=== PATIENT | male | born 1995 | race Caucasian/White ===

== ENCOUNTER 2018-01-14 21:10 | Emergency (ER) | payer OTHER ==
[2018-01-14] MEDS ORDERED: ONDANSETRON 4 MG/2 ML VIAL IVPUSH ONE ×2 (21:45→22:16)
--- NOTE | 2018-01-14 21:45 | PDOC ---
Rapid Medical Evaluation Chief Complaint: Pain, Acute Time Seen by Provider: 01/14/18 21:29 Medical Evaluation: 01/14/18 21:38 CC: c/o RUQ pain with diarrhea x 1 week. denies fever/ chills. pain worse after eating took peptobismol and alkaseltzer with no relief in pain. PE: patient alert ox3. A: abdominal pain P: Patient alert ox3. RUQ tenderness. cbc cmp lipase abdominal US
[2018-01-14 21:56] VITALS: BMI 26.6
[2018-01-14] MEDS ORDERED: ACETAMINOPHEN 1000 MG/100 ML VIAL (NON FORMULARY) IVPB ONE (22:16)
[2018-01-14] MEDS ORDERED: SODIUM CHLORIDE 0.9% 1000 ML INFUS.BAG IV ONE (22:16)
[2018-01-14] MEDS ORDERED: FAMOTIDINE 20 MG/50 ML IVPB 20 MG/50 ML MG IVPB ONE ×2 (22:16→22:32)
[2018-01-14 22:20] LABS: BASO % 0.9 % (0-2.0); EOS % 3.4 % (0-4.5); HEMATOCRIT 43.5 % (35.4-49); HEMOGLOBIN 14.1 GM/dL (11.7-16.9); LYMPH % 25.3 % (8-40); MCH 28.8 pg (25.7-33.7); MCHC 32.4 g/dl (32.0-35.9); MEAN CELL VOLUME 89.1 fl (80-96); MONO % 5.3 % (3.8-10.2); NEUT % 65.1 % (42.8-82.8); PLATELET COUNT 209 K/MM3 (134-434); RBC 4.88 M/mm3 (4.00-5.60); RDW 13.7 % (11.9-15.9); WHITE BLOOD COUNT 9.5 K/mm3 (4.0-10.0)
[2018-01-14] MEDS ORDERED: ONDANSETRON 4 MG/2 ML VIAL ONE (22:32)
[2018-01-14] MEDS ORDERED: ACETAMINOPHEN INJECTION 100 ML IVPB ONE (22:32)
--- NOTE | 2018-01-14 22:37 | PDOC ---
History of Present Illness - General History Source: Patient Exam Limitations: No Limitations - History of Present Illness Initial Comments: 01/14/18 22:52 The patient is a 22 year old male with no significant past medical history presents to the emergency department with right upper quadrant pain w/ nausea and diarrhea. The patient states intermittent pain to the RUQ that radiates to the upper back, no relief with pepto or alkaseltzer. The patient denies any episodes of vomiting but states he has tried to vomit with nothing coming up. The patient states mild dysuria while urinating. The patient states currently he feels nauseous. Denies any burning sensation to the chest. Denies fever, chills cough or chest pain. Denies any hematuria, frequency or urgency to urinate. Allergies: NKDA Social history: None reported Surgical history: None reported PCP: Dr. Aaron Savage MD. <Ximena Henry - Last Filed: 01/14/18 22:52> <Tita Mireles - Last Filed: 01/15/18 01:50> - General Chief Complaint: Pain Stated Complaint: STOMACH PAIN Time Seen by Provider: 01/14/18 21:29 Past History <Ximena Henry - Last Filed: 01/14/18 22:52> - Suicide/Smoking/Psychosocial Hx Smoking History: Never smoked Have you smoked in the past 12 months: No Information on smoking cessation initiated: No Hx Alcohol Use: No Drug/Substance Use Hx: No <Tita Mireles - Last Filed: 01/15/18 01:50> - Past Medical History Allergies/Adverse Reactions: Allergies Allergy/AdvReac Type Severity Reaction Status Date / Time No Known Allergies Allergy Verified 01/14/18 22:17 Home Medications: Ambulatory Orders Ranitidine [Zantac -] 150 mg PO DAILY #14 tablet 01/15/18 Review of Systems - Review of Systems Able to Perform ROS?: Yes Comments:: 01/14/18 22:50 GENERAL/CONSTITUTIONAL: No fever or chills. No weakness. HEAD, EYES, EARS, NOSE AND THROAT: No change in vision. No ear pain or discharge. No sore throat. CARDIOVASCULAR: No chest pain or shortness of breath. RESPIRATORY: No cough, wheezing, or hemoptysis. GASTROINTESTINAL: (+) Nausea and diarrhea. No vomiting or constipation. GENITOURINARY: (+) Mild dysuria. No frequency, or change in urination. MUSCULOSKELETAL: No joint or muscle swelling or pain. No neck or back pain. SKIN: No rash NEUROLOGIC: No headache, vertigo, loss of consciousness, or change in strength/ sensation. ENDOCRINE: No increased thirst. No abnormal weight change. HEMATOLOGIC/LYMPHATIC: No anemia, easy bleeding, or history of blood clots. ALLERGIC/IMMUNOLOGIC: No hives or skin allergy. <Ximena Henry - Last Filed: 01/14/18 22:52> *Physical Exam - Vital Signs Last Vital Signs Temp Pulse Resp BP Pulse Ox 97.9 F 81 16 99/60 100 01/14/18 21:11 01/14/18 21:11 01/14/18 21:11 01/14/18 21:11 01/14/18 21:11 - Physical Exam Comments: 01/14/18 22:47 GENERAL: Awake, alert, and fully oriented, in no acute distress HEAD: No signs of trauma EYES: PERRLA, EOMI, sclera anicteric, conjunctiva clear ENT: Auricles normal inspection, hearing grossly normal, nares patent, oropharynx clear without exudates. Moist mucosa NECK: Normal ROM, supple, no lymphadenopathy, JVD, or masses LUNGS: Breath sounds equal, clear to auscultation bilaterally. No wheezes, and no crackles HEART: Regular rate and rhythm, normal S1 and S2, no murmurs, rubs or gallops ABDOMEN: (+) Positive murphys sign with right upper quadrant pain. Soft, nontender, normoactive bowel sounds. No guarding, no rebound. No masses EXTREMITIES: Normal range of motion, no edema. No clubbing or cyanosis. No cords, erythema, or tenderness NEUROLOGICAL: Cranial nerves II through XII grossly intact. Normal speech, normal gait SKIN: Warm, Dry, normal turgor, no rashes or lesions noted. <Ximena Henry - Last Filed: 01/14/18 22:52> - Vital Signs Last Vital Signs Temp Pulse Resp BP Pulse Ox 97.9 F 81 16 99/60 100 01/14/18 21:11 01/14/18 21:11 01/14/18 21:11 01/14/18 21:11 01/14/18 21:11 <Tita Mireles - Last Filed: 01/15/18 01:50> ED Treatment Course - LABORATORY CBC & Chemistry Diagram: 01/14/18 22:03 01/14/18 22:03 - ADDITIONAL ORDERS Additional order review: 01/14/18 22:03 RBC 4.88 MCV 89.1 MCHC 32.4 RDW 13.7 MPV 9.0 Neutrophils % 65.1 Lymphocytes % 25.3 Monocytes % 5.3 Eosinophils % 3.4 Basophils % 0.9 - Medications Given in the ED: ED Medications Discontinued Medications Generic Name Dose Route Start Last Admin Trade Name Freq PRN Reason Stop Dose Admin Acetaminophen 1,000 mg 01/14/18 22:16 01/14/18 22:32 Ofirmev Injection - IVPB 01/14/18 22:17 1,000 mg ONCE ONE Administration Famotidine/Sodium Chloride 20 mg in 50 mls @ 100 mls/hr 01/14/18 22:16 22:33 Pepcid 20 Mg Premixed Ivpb - IVPB 01/14/18 22:45 100 mls/hr ONCE ONE Administration Ondansetron HCl 4 mg 01/14/18 21:45 01/14/18 22:32 Zofran Injection IVPUSH 01/14/18 21:46 4 mg ONCE ONE Administration Sodium Chloride 1,000 ml 01/14/18 22:16 01/14/18 22:31 Normal Saline - IV 01/14/18 22:17 1,000 ml ONCE ONE Administration <Ximena Henry - Last Filed: 01/14/18 22:52> - LABORATORY CBC & Chemistry Diagram: 01/14/18 22:03 01/14/18 22:03 - ADDITIONAL ORDERS Additional order review: 01/14/18 22:03 RBC 4.88 MCV 89.1 MCHC 32.4 RDW 13.7 MPV 9.0 Neutrophils % 65.1 Lymphocytes % 25.3 Monocytes % 5.3 Eosinophils % 3.4 Basophils % 0.9 - Medications Given in the ED: ED Medications Discontinued Medications Generic Name Dose Route Start Last Admin Trade Name Freq PRN Reason Stop Dose Admin Acetaminophen 1,000 mg 01/14/18 22:16 01/14/18 22:32 Ofirmev Injection - IVPB 01/14/18 22:17 1,000 mg ONCE ONE Administration Ondansetron HCl 4 mg 01/14/18 21:45 01/14/18 22:32 Zofran Injection IVPUSH 01/14/18 21:46 4 mg ONCE ONE Administration Sodium Chloride 1,000 ml 01/14/18 22:16 01/14/18 22:31 Normal Saline - IV 01/14/18 22:17 1,000 ml ONCE ONE Administration <Tita Mireles - Last Filed: 01/15/18 01:50> Medical Decision Making - Medical Decision Making 01/14/18 22:35 a/p: 22yo male with RUQ abd pain assoc with nausea and diarrhea -concern for poss rita vs appy -will start with RUQ u/s and labs -will medicate and reassess -less concern for appy given repeat episodes of RUQ pain with eating assoc with n/d -did drink etoh tonight -will send labs, lipase, RUQ u/s -discussed plan with the patient who agrees with the plan 01/15/18 00:38 re-eval: now c/o only RLQ RUQ u/s without acute findings however, still concern for appy - will obtain ct abd/pelvis labs reviewed without acute findings 01/15/18 01:31 ct does not show acute appy ua negative pt states he feels better will give meds for poss gastritis for epigastric and RUQ pain recommend GI follow up answered all questions stable for d/c to home <Tita Mireles - Last Filed: 01/15/18 01:50> *DC/Admit/Observation/Transfer <Ximena Henry - Last Filed: 01/14/18 22:52> - Discharge Dispostion Decision to Admit order: No - Attestations Physician Attestion: 01/15/18 01:36 I, Dr. Tita Mireles, DO, attest that this document has been prepared under my direction and personally reviewed by me in its entirety. I further attest, that it accurately reflects all work, treatment, procedures and medical decision -making performed by me. <Tita Mireles - Last Filed: 01/15/18 01:50> Diagnosis at time of Disposition: Abdominal pain - Discharge Dispostion Disposition: HOME Condition at time of disposition: Stable - Prescriptions Prescriptions: Ranitidine [Zantac -] 150 mg PO DAILY #14 tablet - Referrals Referrals: Aaron Savage MD [Primary Care Provider] - Candelario Telles DO [Staff Physician] - - Patient Instructions Printed Discharge Instructions: DI for Abdominal Pain-Adult Additional Instructions: Please take all meds as prescribed. 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 Please return to the ED with any further concerns or complaints. Please stick to the BRAT diet (bananas, rice, apple sauce, and toast) and drink clear liquids for the next 24-48 hours. - Post Discharge Activity Forms/Work/School Notes: Back to Work
[2018-01-14 22:59] LABS: URINE APPEARANCE CLEAR; URINE BILIRUBIN NEGATIVE (<2.0 mg/dL); URINE COLOR YELLOW; URINE GLUCOSE (UA) NEGATIVE (NEGATIVE); URINE KETONE NEGATIVE (NEGATIVE); URINE LEUK ESTERASE NEGATIVE (NEGATIVE); URINE NITRITE NEGATIVE (NEGATIVE); URINE PROTEIN NEGATIVE (NEGATIVE)
[2018-01-15 00:26] LABS: BLOOD UREA NITROGEN 15 mg/dl (7-18); CREATININE 0.8 mg/dl (0.6-1.3); GLUCOSE,RANDOM 84 mg/dl (74-106)
[2018-01-15 00:27] LABS: ALBUMIN 4.2 g/dl (3.5-5.0); ALK PHOS 69 U/L (32-92); ANION GAP 6 (8-16); BILIRUBIN,TOTAL 0.3 mg/dl (0.2-1.0); CALCIUM 9.4 mg/dl (8.4-10.2); CHLORIDE 103 mmol/L (98-107); CO2 28 mmol/L (22-28); POTASSIUM 3.8 mmol/L (3.5-5.1); SGOT/AST 21 U/L (10-42); SGPT/ALT 20 U/L (10-40); SODIUM 137 mmol/L (136-145); TOT PROT 6.9 g/dl (6.4-8.3)
[2018-01-15 01:46] VITALS: BP 95/52; PULSE 56; TEMP 97.4
[2018-01-15 12:42] LABS: LIPASE 103 U/L (73-393)
== END 2018-01-15 01:52 | disposition home or self-care (01) ==
LOC: JER 21:10
PROC: 3E033GC Introduction of Other Therapeutic Substance into Peripheral Vein, Percutaneous Approach (ICD-10-PCS; principal; 2018-01-14)
PROC: 3E033NZ Introduction of Analgesics, Hypnotics, Sedatives into Peripheral Vein, Percutaneous Approach (ICD-10-PCS; 2018-01-14)
PROC: 3E0337Z Introduction of Electrolytic and Water Balance Substance into Peripheral Vein, Percutaneous Approach (ICD-10-PCS; 2018-01-14)
DX: R10.11 Right upper quadrant pain (principal)
CPT/HCPCS: 36415; 74177-TC; 76705-TC; 80053; 81003; 82553; 83690; 85025; 99282-25; J0131; J7030

== ENCOUNTER 2019-01-08 07:47 | Emergency (ER) | payer OTHER ==
[2019-01-08 07:56] VITALS: BMI 26.6
[2019-01-08] MEDS ORDERED: ONDANSETRON 4 MG/2 ML VIAL IVPUSH ONE (08:31)
[2019-01-08] MEDS ORDERED: KETOROLAC TROMETHAMINE 30 MG/1 ML VIAL IVPUSH ONE (08:31)
[2019-01-08] MEDS ORDERED: SODIUM CHLORIDE 1,000 ML IV STA (08:31)
[2019-01-08] MEDS ORDERED: KETOROLAC TROMETHAMINE 30 MG/1 ML VIAL ONE (09:19)
[2019-01-08] MEDS ORDERED: ONDANSETRON 4 MG/2 ML VIAL ONE (09:20)
[2019-01-08 09:33] LABS: BASO % 0.7 % (0-2.0); EOS % 3.3 % (0-4.5); HEMATOCRIT 45.3 % (35.4-49); HEMOGLOBIN 14.7 GM/dL (11.7-16.9); LYMPH % 32.1 % (8-40); MCH 28.9 pg (25.7-33.7); MCHC 32.4 g/dl (32.0-35.9); MEAN CELL VOLUME 89.2 fl (80-96); MEAN PLT VOLUME 8.9 fl (7.5-11.1); MONO % 4.6 % (3.8-10.2); NEUT % 59.3 % (42.8-82.8); PLATELET COUNT 212 K/MM3 (134-434); RBC 5.08 M/mm3 (4.00-5.60); RDW 13.3 % (11.9-15.9); WHITE BLOOD COUNT 6.1 K/mm3 (4.0-10.0)
[2019-01-08 09:35] LABS: PH,URINE 6.5 (5.0-8.0); URINE APPEARANCE CLEAR; URINE BILIRUBIN NEGATIVE (NEGATIVE); URINE COLOR YELLOW; URINE GLUCOSE (UA) NEGATIVE (NEGATIVE); URINE KETONE NEGATIVE (NEGATIVE); URINE LEUK ESTERASE NEGATIVE (NEGATIVE); URINE NITRITE NEGATIVE (NEGATIVE); URINE PROTEIN NEGATIVE (NEGATIVE); URINE UROBILINOGEN 0.2 mg/dL (0.2-1.0)
[2019-01-08 10:01] LABS: BILIRUBIN,TOTAL 0.3 mg/dL (0.2-1); CALCIUM 9.4 mg/dL (8.5-10.1); CREATININE 0.8 mg/dL (0.55-1.3); MAGNESIUM 1.9 mg/dL (1.8-2.4); POTASSIUM 4.2 mmol/L (3.5-5.1); TOT PROT 6.7 g/dl (6.4-8.2)
--- NOTE | 2019-01-08 10:20 | PDOC ---
History of Present Illness - General Chief Complaint: Pain Stated Complaint: ABD PAIN Time Seen by Provider: 01/08/19 08:30 History Source: Patient Exam Limitations: No Limitations - History of Present Illness Travel History: No Initial Comments: 01/08/19 09:06 23-year-old male with history of gastritis presents to ED with abdominal pain associated with diarrhea for the past month intermittently which she describes as watery diarrhea mixed with periods of constipation and had one episode of bloody stool last week. Patient denies hemorrhoids, difficulty urinating but states did feel warm yesterday and decided come to the ER. Patient states was placed on reflux medication by Dr. Holly a few weeks ago and has a follow-up appointment in 1 week patient denies daily alcohol use or smoking history. Patient states normally does not eat spicy greasy food eating mainly at home. Timing/Duration: reports: intermittent Quality: reports: mild, cramping Abdominal Pain Onset Location: reports: RLQ, LLQ, periumbilical Pain Radiation: reports: no radiation Activities at Onset: reports: none Aggravating Factors: improves with: None Alleviating Factors: improves with: None Past History - Past Medical History Allergies/Adverse Reactions: Allergies Allergy/AdvReac Type Severity Reaction Status Date / Time No Known Allergies Allergy Verified 01/08/19 07:51 Home Medications: Ambulatory Orders Ranitidine [Zantac -] 150 mg PO DAILY #14 tablet 01/15/18 CVA: No COPD: No CHF: No GI Disorders: Yes (gastritis) - Immunization History Immunization Up to Date: Yes - Suicide/Smoking/Psychosocial Hx Smoking History: Never smoked Have you smoked in the past 12 months: No Information on smoking cessation initiated: No Hx Alcohol Use: No Drug/Substance Use Hx: Yes (MARIJUANA) Patient Lives Alone: No Lives with/in: parents Abd/GI Specific PMHX - Complaint Specific PMHX GERD: Yes Review of Systems - Review of Systems Able to Perform ROS?: Yes Constitutional: Yes: Fever, Weakness (mild) Respiratory: No: Symptoms reported Cardiac (ROS): No: Symptoms Reported ABD/GI: Yes: Constipated, Diarrhea, Abdominal cramping. No: Poor Appetite, Poor Fluid Intake : No: Symptoms Reported Musculoskeletal: No: Symptoms Reported Integumentary: No: Symptoms Reported Neurological: No: Symptoms reported Endocrine: No: Symptoms Reported Hematologic/Lymphatic: No: Symptoms Reported *Physical Exam - Vital Signs Last Vital Signs Temp Pulse Resp BP Pulse Ox 97.8 F 57 L 17 104/63 99 01/08/19 08:48 01/08/19 08:48 01/08/19 07:52 01/08/19 08:48 01/08/19 08:48 - Physical Exam General Appearance: Yes: Nourished, Appropriately Dressed. No: Apparent Distress HEENT: negative: Pale Conjunctivae Neck: positive: Supple Respiratory/Chest: positive: Lungs Clear, Normal Breath Sounds. negative: Respiratory Distress, Accessory Muscle Use Cardiovascular: positive: Regular Rhythm, Regular Rate. negative: Murmur Gastrointestinal/Abdominal: positive: Soft, Tenderness (left lower quadrant) Musculoskeletal: negative: CVA Tenderness Extremity: positive: Normal Inspection Integumentary: positive: Normal Color, Warm, Moist Neurologic: positive: Motor Strength 5/5 (ambulatory) ED Treatment Course - LABORATORY CBC & Chemistry Diagram: 01/08/19 09:14 01/08/19 09:14 - ADDITIONAL ORDERS Additional order review: Laboratory Results 01/08/19 09:14 Urine Color Yellow Urine Appearance Clear Urine pH 6.5 Ur Specific [place] 1.018 Urine Protein Negative Urine Glucose (UA) Negative Urine Ketones Negative Urine Blood Negative Urine Nitrite Negative Urine Bilirubin Negative Urine Urobilinogen 0.2 Ur Leukocyte Esterase Negative 01/08/19 09:14 RBC 5.08 MCV 89.2 MCHC 32.4 RDW 13.3 MPV 8.9 Neutrophils % 59.3 Lymphocytes % 32.1 D Monocytes % 4.6 Eosinophils % 3.3 Basophils % 0.7 - Medications Given in the ED: ED Medications Discontinued Medications Generic Name Dose Route Start Last Admin Trade Name Freq PRN Reason Stop Dose Admin Sodium Chloride 1,000 mls @ 1,000 mls/hr 01/08/19 08:31 01/08/19 09:27 Normal Saline - IV 01/08/19 09:30 1,000 mls/hr ASDIR STA Administration Ketorolac Tromethamine 30 mg 01/08/19 08:31 01/08/19 09:27 Toradol Injection - IVPUSH 01/08/19 08:32 30 mg ONCE ONE Administration Ondansetron HCl 4 mg 01/08/19 08:31 01/08/19 09:27 Zofran Injection IVPUSH 01/08/19 08:32 4 mg ONCE ONE Administration Medical Decision Making - Medical Decision Making 01/08/19 10:04 CC: Patient with episodic diarrhea and constipation for the past month now associated 1 episode of bloody stool earlier this week accompanied with subjective fever. Patient under the care of Dr. Holly for gastritis/GERD Exam: Patient with left lower quadrant tenderness otherwise vital signs stable and appears comfortable while at rest. Plan. Labs, urine, fluids and Toradol ordered 01/08/19 11:27 Laboratory Tests 01/08/19 01/08/19 01/08/19 09:14 09:14 09:14 WBC 6.1 Hgb 14.7 Hct 45.3 Absolute Neuts (auto) 3.6 Sodium 142 Potassium 4.2 Chloride 109 H Carbon Dioxide 28 Anion Gap 6 L BUN 11 Creatinine 0.8 Random Glucose 86 Calcium 9.4 Magnesium 1.9 AST 11 L ALT 18 Lipase 97 Urine Ketones Negative Urine Blood Negative Urine Nitrite Negative Ur Leukocyte Esterase Negative Influenza A (Rapid) Influenza B (Rapid) 01/08/19 09:20 WBC Hgb Hct Absolute Neuts (auto) Sodium Potassium Chloride Carbon Dioxide Anion Gap BUN Creatinine Random Glucose Calcium Magnesium AST ALT Lipase Urine Ketones Urine Blood Urine Nitrite Ur Leukocyte Esterase Influenza A (Rapid) Negative Influenza B (Rapid) Negative Patient states feeling better and able to tolerate ice chips and saltines *DC/Admit/Observation/Transfer Diagnosis at time of Disposition: Abdominal pain - Discharge Dispostion Disposition: HOME Condition at time of disposition: Improved - Referrals Referrals: Aaron Savage MD [Primary Care Provider] - - Patient Instructions Printed Discharge Instructions: DI for Abdominal Pain-Adult Additional Instructions: Please eat bland food for the next 48 hours and then advance as tolerated. Drink plenty of fluids and take Zofran as needed for nausea - Post Discharge Activity
[2019-01-08 11:41] VITALS: BP 115/71; PULSE 68; TEMP 97.6
== END 2019-01-08 11:41 | disposition home or self-care (01) ==
LOC: JER 07:47
PROC: 3E0333Z Introduction of Anti-inflammatory into Peripheral Vein, Percutaneous Approach (ICD-10-PCS; principal; 2019-01-08)
DX: R10.9 Unspecified abdominal pain (principal)
CPT/HCPCS: 36415; 80053; 81003; 83690; 83735; 85025; 87086; 87804; 96374; 96375; 99282-25; J7030

== ENCOUNTER 2020-11-23 23:10 | Emergency (ER) | payer OTHER ==
[2020-11-23 23:21] VITALS: BP 116/68; PULSE 79; TEMP 98.5; BMI 26.6
[2020-11-23] MEDS ORDERED: ACETAMINOPHEN 325 MG TABLET (FP) PO ONE (23:51)
[2020-11-23] MEDS ORDERED: ACETAMINOPHEN 325 MG TABLET (FP) ONE (23:54)
== END 2020-11-24 01:47 | disposition home or self-care (01) ==
LOC: JER 23:10
DX: S93.402A Sprain of unspecified ligament of left ankle, initial encounter (principal)
CPT/HCPCS: 73630-TC-LT; 99284-25

== ENCOUNTER 2021-05-18 21:48 | Emergency (ER) | payer OTHER ==
[2021-05-18 21:54] VITALS: BP 118/78; PULSE 75; TEMP 98; BMI 24.3
[2021-05-18] MEDS ORDERED: IBUPROFEN 400 MG TABLET (FP) PO ONE ×2 (22:31→22:37)
== END 2021-05-18 22:55 | disposition home or self-care (01) ==
LOC: JERFT 21:48
DX: S20.212A Contusion of left front wall of thorax, initial encounter (principal); M25.512 Pain in left shoulder; W20.8XXA Other cause of strike by thrown, projected or falling object, initial encounter
CPT/HCPCS: 71045-TC-FY; 71101-TC-LT-FY; 73030-TC-LT-FY; 99285-25

== ENCOUNTER 2022-05-02 21:34 | Emergency (ER) | payer OTHER ==
[2022-05-02 21:47] VITALS: BP 130/83; PULSE 117; RESP 18; TEMP 98.1; BMI 26.4
[2022-05-02] MEDS ORDERED: ONDANSETRON 4 MG/2 ML VIAL IVPUSH ONE (22:41)
[2022-05-02] MEDS ORDERED: SODIUM CHLORIDE 1,000 ML IV STA (22:44)
[2022-05-02] MEDS ORDERED: FAMOTIDINE 20 MG/50 ML IVPB 20 MG/50 ML MG IVPB ONE (23:06)
[2022-05-02] MEDS ORDERED: MAG HYDROX/AL HYDROX/SIMETH -MYLANTA- ORAL SUSPENSION PO ONE (23:06)
[2022-05-02] MEDS ORDERED: ONDANSETRON 4 MG/2 ML VIAL ONE (23:08)
[2022-05-02] MEDS ORDERED: FAMOTIDINE 10 MG/ML VIAL IVPB ONE (23:08)
[2022-05-02] MEDS ORDERED: MAG HYDROX/AL HYDROX/SIMETH 30 ML UNIT-DOSE CUP ONE (23:08)
[2022-05-02] MEDS ORDERED: HALOPERIDOL LACTATE 5 MG/ML IV ONE (23:18)
[2022-05-02 23:40] LABS: BASO % 0.4 % (0-2.0); EOS % 0.2 % (0-4.5); HEMATOCRIT 44.1 % (35.4-49); HEMOGLOBIN 14.9 GM/dL (11.7-16.9); LYMPH % 11.9 % (8-40); MCH 30.2 pg (25.7-33.7); MCHC 33.9 g/dl (32.0-35.9); MEAN PLT VOLUME 8.8 fl (7.5-11.1); MONO % 5.2 % (3.8-10.2); NEUT % 82.3 % (42.8-82.8); PLATELET COUNT 215 10^3/uL (134-434); RBC 4.95 M/mm3 (4.00-5.60); RDW 13.6 % (11.9-15.9); WHITE BLOOD COUNT 10.1 K/mm3 (4.0-10.0)
[2022-05-03 00:01] LABS: CALCIUM 9.6 mg/dL (8.5-10.1)
[2022-05-03 00:02] LABS: ALBUMIN 4.2 g/dl (3.4-5.0); BLOOD UREA NITROGEN 13.1 mg/dL (7-18)
[2022-05-03 00:07] LABS: BILIRUBIN,TOTAL 0.6 mg/dL (0.2-1); TOT PROT 7.5 g/dl (6.4-8.2)
[2022-05-03] MEDS ORDERED: HALOPERIDOL LACTATE 5 MG/ML ONE (00:14)
[2022-05-03 00:58] LABS: CALCIUM 8.8 mg/dL (8.5-10.1)
[2022-05-03 00:59] LABS: BLOOD UREA NITROGEN 12.1 mg/dL (7-18)
[2022-05-03 01:02] LABS: CREATININE 0.9 mg/dL (0.55-1.3)
== END 2022-05-03 01:21 | disposition home or self-care (01) ==
LOC: JER 21:34
PROC: 3E033GC Introduction of Other Therapeutic Substance into Peripheral Vein, Percutaneous Approach (ICD-10-PCS; principal; 2022-05-02)
PROC: 3E033GC Introduction of Other Therapeutic Substance into Peripheral Vein, Percutaneous Approach (ICD-10-PCS; 2022-05-02)
PROC: 3E033GC Introduction of Other Therapeutic Substance into Peripheral Vein, Percutaneous Approach (ICD-10-PCS; 2022-05-02)
DX: F12.10 Cannabis abuse, uncomplicated (principal); R10.13 Epigastric pain
CPT/HCPCS: 36415; 71046-TC-FY; 80048; 80053; 83690; 83735; 84484; 85025; 93005; 93010; 99285-25

== ENCOUNTER 2022-05-14 19:45 | Emergency (ER) | payer OTHER ==
[2022-05-14 20:18] VITALS: BP 107/67; PULSE 98; RESP 18; TEMP 98; BMI 25.8
[2022-05-14] MEDS ORDERED: KETOROLAC TROMETHAMINE 30 MG/1 ML VIAL IM ONE (21:09)
[2022-05-14] MEDS ORDERED: METHOCARBAMOL 500 MG TABLET PO ONE (21:09)
[2022-05-14] MEDS ORDERED: METHOCARBAMOL 500 MG TABLET ONE (21:18)
[2022-05-14] MEDS ORDERED: KETOROLAC TROMETHAMINE 30 MG/1 ML VIAL ONE (21:18)
== END 2022-05-14 21:56 | disposition home or self-care (01) ==
LOC: JERFT 19:45
PROC: 3E0233Z Introduction of Anti-inflammatory into Muscle, Percutaneous Approach (ICD-10-PCS; principal; 2022-05-14)
DX: M25.512 Pain in left shoulder (principal); R07.9 Chest pain, unspecified; V49.40XA Driver injured in collision with unspecified motor vehicles in traffic accident, initial encounter
CPT/HCPCS: 71046-TC-FY; 73030-TC-LT-FY; 93005; 93010; 99285-25

== ENCOUNTER 2022-05-21 14:44 | Emergency (ER) | payer OTHER ==
[2022-05-21 15:21] VITALS: BP 142/80; PULSE 75; RESP 18; TEMP 97.8; BMI 26.4
[2022-05-21] MEDS ORDERED: MAG HYDROX/AL HYDROX/SIMETH 30 ML UNIT-DOSE CUP PO ONE (16:58)
[2022-05-21] MEDS ORDERED: ACETAMINOPHEN 1000 MG/100 ML BAG IVPB ONE (16:58)
[2022-05-21] MEDS ORDERED: FAMOTIDINE 20 MG/50 ML IVPB 20 MG/50 ML MG IVPB ONE ×2 (16:58→17:23)
[2022-05-21] MEDS ORDERED: MAG HYDROX/AL HYDROX/SIMETH 30 ML UNIT-DOSE CUP ONE (17:23)
[2022-05-21] MEDS ORDERED: ACETAMINOPHEN INJECTION 100 ML IVPB ONE (17:23)
[2022-05-21 18:41] LABS: BASO % 0.7 % (0-2.0); EOS % 2.1 % (0-4.5); HEMATOCRIT 47.7 % (35.4-49); LYMPH % 33.2 % (8-40); MCH 30.3 pg (25.7-33.7); MCHC 33.6 g/dl (32.0-35.9); MEAN PLT VOLUME 8.6 fl (7.5-11.1); MONO % 5.9 % (3.8-10.2); NEUT % 58.1 % (42.8-82.8); PLATELET COUNT 272 10^3/uL (134-434); RDW 13.7 % (11.9-15.9); WHITE BLOOD COUNT 8.1 K/mm3 (4.0-10.0)
[2022-05-21 19:11] LABS: ALBUMIN 4.3 g/dl (3.4-5.0); BLOOD UREA NITROGEN 12.6 mg/dL (7-18); CALCIUM 9.6 mg/dL (8.5-10.1)
[2022-05-21 19:14] LABS: CREATININE 0.8 mg/dL (0.55-1.3)
[2022-05-21 19:15] LABS: BILIRUBIN,TOTAL 0.4 mg/dL (0.2-1)
[2022-05-21 19:17] LABS: TOT PROT 7.6 g/dl (6.4-8.2)
== END 2022-05-21 22:17 | disposition home or self-care (01) ==
LOC: JER 14:44
PROC: 3E0333Z Introduction of Anti-inflammatory into Peripheral Vein, Percutaneous Approach (ICD-10-PCS; principal; 2022-05-21)
PROC: 3E033GC Introduction of Other Therapeutic Substance into Peripheral Vein, Percutaneous Approach (ICD-10-PCS; 2022-05-21)
DX: K62.89 Other specified diseases of anus and rectum (principal); R19.5 Other fecal abnormalities; R10.84 Generalized abdominal pain; R11.2 Nausea with vomiting, unspecified
CPT/HCPCS: 36415; 74177-TC; 80053; 82272; 83605; 83690; 85025; 87086; 99285-25

== ENCOUNTER 2022-07-04 20:07 | Emergency (ER) | payer BC, OTHER ==
[2022-07-04 20:34] VITALS: BP 133/70; PULSE 100; RESP 18; TEMP 98.1; BMI 25.8
[2022-07-04] MEDS ORDERED: ACETAMINOPHEN 1000 MG/100 ML BAG IVPB ONE (22:49)
[2022-07-04] MEDS ORDERED: METOCLOPRAMIDE HCL INJECTION 10 MG/2 ML VIAL IVPB ONE (22:49)
[2022-07-04] MEDS ORDERED: MAG HYDROX/AL HYDROX/SIMETH 30 ML UNIT-DOSE CUP PO ONE (22:49)
[2022-07-04] MEDS ORDERED: LACTATED RINGERS SOLUTION 1000 ML INFUS.BAG IV ONE (22:49)
[2022-07-04] MEDS ORDERED: FAMOTIDINE 20 MG/50 ML IVPB 20 MG/50 ML MG IVPB ONE ×2 (22:49→23:00)
[2022-07-04] MEDS ORDERED: METOCLOPRAMIDE HCL INJECTION 10 MG/2 ML VIAL ONE (22:59)
[2022-07-04] MEDS ORDERED: ACETAMINOPHEN INJECTION 100 ML IVPB ONE (23:00)
[2022-07-04] MEDS ORDERED: MAG HYDROX/AL HYDROX/SIMETH 30 ML UNIT-DOSE CUP ONE (23:00)
[2022-07-04 23:28] LABS: BASO % 0.5 % (0-2.0); HEMATOCRIT 45.7 % (35.4-49); HEMOGLOBIN 15.3 GM/dL (11.7-16.9); LYMPH % 18.6 % (8-40); MCH 29.9 pg (25.7-33.7); MCHC 33.5 g/dl (32.0-35.9); MEAN CELL VOLUME 89.2 fl (80-96); MEAN PLT VOLUME 8.4 fl (7.5-11.1); MONO % 5.1 % (3.8-10.2); NEUT % 74.8 % (42.8-82.8); PH,URINE 5.5 (5.0-8.0); PLATELET COUNT 260 10^3/uL (134-434); RBC 5.12 M/mm3 (4.00-5.60); RDW 13.5 % (11.9-15.9); URINE APPEARANCE CLEAR; URINE BILIRUBIN NEGATIVE (NEGATIVE); URINE COLOR DK YELLOW; URINE GLUCOSE (UA) NEGATIVE (NEGATIVE); URINE KETONE TRACE (NEGATIVE); URINE LEUK ESTERASE NEGATIVE (NEGATIVE); URINE NITRITE NEGATIVE (NEGATIVE); URINE PROTEIN TRACE (NEGATIVE)
[2022-07-04 23:51] LABS: CALCIUM 9.4 mg/dL (8.5-10.1)
[2022-07-04 23:52] LABS: ALBUMIN 4.2 g/dl (3.4-5.0); BLOOD UREA NITROGEN 13.1 mg/dL (7-18); MAGNESIUM 2.2 mg/dL (1.8-2.4)
[2022-07-04 23:55] LABS: TOT PROT 7.4 g/dl (6.4-8.2)
[2022-07-04 23:57] LABS: BILIRUBIN,TOTAL 0.4 mg/dL (0.2-1)
[2022-07-05] MEDS ORDERED: KETOROLAC TROMETHAMINE 15 MG/ML VIAL IVPUSH ONE (00:40)
[2022-07-05] MEDS ORDERED: KETOROLAC TROMETHAMINE 15 MG/ML VIAL ONE (00:47)
== END 2022-07-05 01:27 | disposition home or self-care (01) ==
LOC: JER 20:07
PROC: 3E033GC Introduction of Other Therapeutic Substance into Peripheral Vein, Percutaneous Approach (ICD-10-PCS; principal; 2022-07-04)
DX: R19.7 Diarrhea, unspecified (principal); R11.2 Nausea with vomiting, unspecified
CPT/HCPCS: 0241U-QW; 36415; 71046-TC-FY; 80053; 81003; 83690; 83735; 85025; 87086; 93005; 93010; 99285-25